=== PATIENT | male | born 2000 | race Caucasian/White ===

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

== ENCOUNTER 2021-01-26 00:16 | Emergency (ER) | payer BC, OTHER ==
[~2021-01-26] VITALS: Ht 182.9 cm; Wt 77.0 kg
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
[2021-01-26] MEDS ORDERED: MORPHINE SULFATE 10 MG/ML SYRINGE. SQ ONE (01:00)
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
[2021-01-26] MEDS ORDERED: MUPIROCIN 2% TOPICAL OINTMENT 22GM TUBE. TP ONE (02:07)
[2021-01-26 02:30] VITALS: BP 127/65
[2021-01-26] MEDS ORDERED: BACITRACIN ZINC TOPICAL OINT PACKET. TP ONE (02:30)
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
== END 2021-01-26 02:22 | disposition home or self-care (01) ==
LOC: ER 00:16
DX: S41.112A Laceration without foreign body of left upper arm, initial encounter (principal); S53.402A Unspecified sprain of left elbow, initial encounter; V86.95XA Unspecified occupant of 3- or 4- wheeled all-terrain vehicle (ATV) injured in nontraffic accident, initial encounter; Y93.89 Activity, other specified; Y92.89 Other specified places as the place of occurrence of the external cause; Y99.8 Other external cause status
CPT/HCPCS: 71046; 73060; 73080; 73090; 96372; 99284; J2270